=== PATIENT | female | born 1965 | race Caucasian/White ===

== ENCOUNTER 2017-04-11 04:04 | Emergency (ER) | payer OTHER ==
[2017-04-11] MEDS ORDERED: LIDOCAINE/EPI 2% 1:200,000 10 ML VIAL ONE (04:42)
--- NOTE | 2017-04-11 05:08 | RADIOLOGY REPORT ---
HISTORY: Fall, left shoulder injury COMPARISON: None. FINDINGS: 2 views of the shoulder obtained. There is no fracture. There is no glenohumeral dislocation. Ther e is no acromioclavicular separation. No lytic or sclerotic bone lesions identified. IMPRESSION: Unremarkable shoulder x-ray. Final Electronic Signature: This report was electronically signed by Angel Cortes MD on 04/11/2017 5: 05 AM. [email or web address] /
[2017-04-11] MEDS ORDERED: BACITRACIN 1 APP/PKT PKT TOPICAL ONE (05:30)
--- NOTE | 2017-04-11 05:44 | ER NURSING DOCUMENTATION ---
Nurse's Notes [facility] Name:Danisha Brush Age:51 yrs Sex:Female :1965 Arrival Date:04/11/2017 Time:04:04 Bed6 Private MD: Diagnosis:Facial Laceration;AC Joint Sprain Presentation: 04/11 04:14 Presenting complaint: Patient states: tripped and fell sustaining laceration to right lb forehead. no LOC. also c/o left shoulder pain from trying to stop her fall. Transition of care: Home. Mechanism of Injury: The problem was sustained at home, resulted from a fall, while walking. Notified ED Physician of Dr. Yusuf notified. 04:14 Acuity: NIKO 3 lb 04:14 Method Of Arrival: Walk In lb Triage Assessment: 04:17 General: Appears uncomfortable, Behavior is appropriate for age. Pain: Complains of lb pain in left clavicle Pain does not radiate. Pain currently is 6 out of 10 on a pain scale. EENT: No deficits noted. Neuro: Level of Consciousness is awake, alert, Oriented to person, place, time, event, Warning Coordination Meteorologist are equal bilaterally Moves all extremities. Gait is steady, Speech is normal, Facial symmetry appears normal, Pupils are PERRLA, Reports denies neuro deficit. Cardiovascular: No deficits noted. Respiratory: No deficits noted. GI: No deficits noted. 04:20 Injury Description: Laceration sustained to forehead is clean, was sustained 30-60 lb minutes ago. is bleeding no active bleeding noted. Historical: - Allergies: No known drug Allergies; - Home Meds: 1. hypertensive med - PMHx: Hypertension; - PSHx: None; - Tetanus: < 10 years. - Ebola Screening: : Patient denies exposure to infectious person. Patient denies travel to an Ebola-affected area in the 21 days before illness onset. . - Immunization history: Flu Vaccine None. - Social history: Smoking status: Patient uses tobacco products, current every day smoker. Patient uses alcohol occasionally. - Code Status:: Full code. Screenin:25 Infectious Disease Risk None. Abuse screen: Denies threats or abuse. Denies injuries lb from another. Nutritional screening: No deficits noted. Assessment: 04:21 See Triage Assessment done by same RN. General: Appears uncomfortable, Behavior is lb appropriate for age. Pain: Complains of pain in left clavicle Pain does not radiate. Pain currently is 6 out of 10 on a pain scale. Neuro: No deficits noted. EENT: No deficits noted. Cardiovascular: No deficits noted. Respiratory: No deficits noted. Vital Signs: 04:21 BP 120 / 62; Pulse 60; Resp 18; Temp 97(TE); Pulse Ox 92% on R/A; Weight 63.5 kg; lb Height 5 ft. 7 in. (170.18 cm); Pain 6/10; 05:42 BP 140 / 60; Pulse 68; Resp 16; Pulse Ox 95% on R/A; Pain 3/10; lb 04:21 Body Mass Index 21.93 (63.50 kg, 170.18 cm) lb Sumi Coma Score: 04:14 Eye Response: spontaneous(4). Verbal Response: oriented(5). Motor Response: obeys lb commands(6). Total: 15. 04:35 Eye Response: spontaneous(4). Verbal Response: oriented(5). Motor Response: obeys sc commands(6). Total: 15. 05:09 Eye Response: spontaneous(4). Verbal Response: oriented(5). Motor Response: obeys sc commands(6). Total: 15. Trauma Score (Adult): 04:21 Eye Response: spontaneous(1); Verbal Response: oriented(1); Motor Response: obeys lb commands(2); Systolic BP: > 89 mm Hg(4); Respiratory Rate: 10 to 29 per min(4); [place] Score: 15; Trauma Score: 12 ED Course: 04:05 Patient arrived in ED. jt 04:06 Keven Yusuf MD is Attending Physician. sc 04:14 Jeannie Parra is Primary Nurse. lb 04:16 Triage completed. lb 04:25 Valuables Remains with patient Patient has correct armband on for positive lb identification. Bed in low position. 04:53 Port Xray Completed. mr 05:42 Assist Provider Assist provider with laceration repair on forehead that was between 2.6 lb to 7.5 cm using sutures. Set up tray. Performed by Keven Yusuf MD Dressed with band aid, Patient tolerated well. Administered Medications: 05:00 Drug: Lidocaine-Epinephrine -2 % (1:100,000) 10 ml; Route: Infiltration; lb 05:43 Follow up: Response: Pain is decreased lb 05:30 Drug: Bacitracin Ointment (500 unit/g) 1 application; Route: Topical; Site: forehead; lb 05:44 Follow up: Response: No adverse reaction Outcome: 05:11 Discharge ordered by . russ 05:42 Discharged to home ambulatory. lb 05:42 Condition: good 05:42 Discharge Assessment: Patient awake, alert and oriented x 3. No cognitive and/or functional deficits noted. Patient verbalized understanding of disposition instructions. 05:42 Instructed on discharge instructions, follow up and referral plans. wound care. 05:44 Patient left the ED. 07 16:51 Discharge F/U Call: Spoke with: patient. Are you having any pain? no. Did your discharge instructions answer all of your questions? yes Overall Care on a scale of 1-10 with 10 being the best care, you rate our care as: Other comments: NO CONCERNS Signatures: Caitlyn Pérez RN RN lc Chew, Scott, MD MD sc Tennant, Joanne jt Bollock, Lynda lb Rivera, Michael mr
--- NOTE | 2017-04-11 05:44 | ER PHYSICIAN DOCUMENTATION ---
Physician Documentation [facility] Name:Danisha Brush Age:51 yrs Sex:Female :1965 Arrival Date:04/11/2017 Time:04:04 Bed6 Private MD: Keven Garay Disposition: 04/11/17 05:11 Discharged to Home/Self Care. Impression: Facial Laceration, AC Joint Sprain. - Condition is Good. - Discharge Instructions: AC JOINT SPRAIN, LACERATION, Face (suture or tape), Acute Brain Injuries - HEAD INJURY, No Wake-Up (Adult). - Medical Reconciliation form form. - Follow up: Emergency Department; When: 7 - 10 days; Reason: Staple/Suture removal. Follow up: Private Physician; When: 7 - 10 days; Reason: Recheck today's complaints, Continuance of care. - Problem is new. - Symptoms have improved. HPI: 04/11 04:35 This 51 yrs old Female presents to ER via Walk In with complaints of Head sc Injury Without LOC-Adult, Shoulder Pain - LEFT. 04:35 The patient or guardian reports a laceration, 3 cm(s). The complaints affect the sc forehead. Context of injury: The problem was sustained at home, resulted from a fall, while walking, tripped on fan in dark. Onset: The symptom(s)/episode began/occurred just prior to arrival. Associated signs and symptoms: Loss of consciousness: This patient did not experience any loss of consciousness. Pertinent positives: wrenched shoulder. Historical: - Allergies: No known drug Allergies; - Home Meds: 1. hypertensive med - PMHx: Hypertension; - PSHx: None; - Tetanus: < 10 years. - Ebola Screening: : Patient denies exposure to infectious person. Patient denies travel to an Ebola-affected area in the 21 days before illness onset. . - Immunization history: Flu Vaccine None. - Social history: Smoking status: Patient uses tobacco products, current every day smoker. Patient uses alcohol occasionally. - Code Status:: Full code. ROS: 04:36 Constitutional: Negative for fever, chills, and weight loss. sc 04:36 Cardiovascular: Negative for chest pain, palpitations, and edema. sc Respiratory: Negative for shortness of breath, cough, wheezing, and pleuritic chest pain. 04:36 Back: Negative for injury and pain. 04:36 Eyes: Negative for injury or acute deformity. 04:36 ENT: Negative for injury or acute deformity. 04:36 MS/extremity: Positive for injury or acute deformity, pain. Exam: 04:40 Head/face: Noted is a laceration(s), Basilar skull fracture findings: the patient does sc not have obvious signs of a basilar skull fracture. 04:40 Eyes: Pupils: equal, round, and reactive to light and accomodation. 04:40 ENT: TM's: hemotympanum, is not appreciated. 04:40 Neck: C-spine: Nexus Criteria: Nexus criteria: no cervical midline tenderness, patient is not intoxicated, mental status is normal, no focal/neurologic deficits, and no painful distracting injuries are present. 04:40 Musculoskeletal/extremity: Extremities: grossly normal except: pain, ROM: limited active range of motion due to pain, limited passive range of motion due to pain, at ac joint, Circulation is intact in all extremities. Sensation intact. 04:40 Neuro: Orientation: is normal, Mentation: is normal. Vital Signs: 04:21 BP 120 / 62; Pulse 60; Resp 18; Temp 97(TE); Pulse Ox 92% on R/A; Weight 63.5 kg; lb Height 5 ft. 7 in. (170.18 cm); Pain 6/10; 05:42 BP 140 / 60; Pulse 68; Resp 16; Pulse Ox 95% on R/A; Pain 3/10; lb 04:21 Body Mass Index 21.93 (63.50 kg, 170.18 cm) lb [place] Coma Score: 04:14 Eye Response: spontaneous(4). Verbal Response: oriented(5). Motor Response: obeys lb commands(6). Total: 15. 04:35 Eye Response: spontaneous(4). Verbal Response: oriented(5). Motor Response: obeys sc commands(6). Total: 15. 05:09 Eye Response: spontaneous(4). Verbal Response: oriented(5). Motor Response: obeys sc commands(6). Total: 15. Trauma Score (Adult): 04:21 Eye Response: spontaneous(1); Verbal Response: oriented(1); Motor Response: obeys lb commands(2); Systolic BP: > 89 mm Hg(4); Respiratory Rate: 10 to 29 per min(4); Sumi Score: 15; Trauma Score: 12 Laceration: 05:08 Wound Repair of 2.5cm ( 1.0in ) subcutaneous laceration to forehead. Irregularly sc shaped.. Distal neuro/vascular/tendon intact. Anesthesia: Wound infiltrated with 2 mls of 2% lidocaine w/ Epi. Wound prep: Simple cleansing by truck technician. Skin closed with 10 4-0 Prolene using Interrupted sutures. Dressed with Bacitracin, bandaid. Patient tolerated well. MDM: 04:06 Patient medically screened. sc 05:09 Differential diagnosis: Laceration of face. Data reviewed: vital signs, nurses notes, sc and as a result, I will discharge patient. Counseling: I had a detailed discussion with the patient and/or guardian regarding: the historical points, exam findings, and any diagnostic results supporting the discharge/admit diagnosis, radiology results, the need for outpatient follow up, for a referral to a specialist. 04/11 05:09 Order name: SHOULDER; 2V+ [place] [id number]; Complete Time: 05:12 EDMS 07 05:12 Interpretation: Normal. sc Dispensed Medications: 05:00 Drug: Lidocaine-Epinephrine -2 % (1:100,000) 10 ml; Route: Infiltration; lb 05:43 Follow up: Response: Pain is decreased lb 05:30 Drug: Bacitracin Ointment (500 unit/g) 1 application; Route: Topical; Site: forehead; lb 05:44 Follow up: Response: No adverse reaction lb Signatures: Keven Yusuf MD MD wy Jeannie Parra lb
== END 2017-04-11 05:44 | disposition home or self-care (01) ==
LOC: ER 04:04
DX: S01.81XA Laceration without foreign body of other part of head, initial encounter (principal); S43.52XA Sprain of left acromioclavicular joint, initial encounter; W01.0XXA Fall on same level from slipping, tripping and stumbling without subsequent striking against object, initial encounter; Y92.019 Unspecified place in single-family (private) house as the place of occurrence of the external cause; Y93.01 Activity, walking, marching and hiking; I10 Essential (primary) hypertension; Z79.899 Other long term (current) drug therapy
CPT/HCPCS: 12011; 99283

== ENCOUNTER 2017-04-18 14:23 | Emergency (ER) | payer OTHER ==
--- NOTE | 2017-04-18 14:36 | ER NURSING DOCUMENTATION ---
Nurse's Notes [facility] Name:Danisha Brush Age:51 yrs Sex:Female :1965 Arrival Date:04/18/2017 Time:14:23 Bed2 Private MD:Rodney Willoughby Diagnosis:Suture Removal Presentation: 04/18 14:25 Acuity: NIKO 4 st Vital Signs: 14:31 BP 124 / 81; Pulse 97; Temp 97.6; Pulse Ox 92% ; Pain 0/10; st ED Course: 14:24 Patient arrived in ED. arc 14:24 [facility] arc 14:25 Elise Winston RN is Primary Nurse. st 14:[address] 14:32 Removed sutures from middle aspect of right eyebrow Suture site is well healed Patient st tolerated well. 14:35 [facility] is Referral Physician. st Administered Medications: No medications were administered Outcome: 14:34 Discharged to home ambulatory. st 14:34 Condition: improved 14:34 Discharge instructions given to patient, Instructed on follow up and referral plans. wound care. 14:35 Discharge ordered by MD. st 14:35 Patient [address] the ED. st Signatures: Elise Winston RN RN st Kanwal Yusuf, Reg Reg arc
== END 2017-04-18 14:36 | disposition home or self-care (01) ==
LOC: ER 14:23
DX: Z48.02 Encounter for removal of sutures (principal); S01.81XD Laceration without foreign body of other part of head, subsequent encounter
CPT/HCPCS: 99281